=== PATIENT | male | born 1995 | race Caucasian/White ===

== ENCOUNTER 2024-06-23 11:28 | Outpatient (REF) | payer OTHER, SELFPAY | END 2024-06-23 11:29 | disposition home or self-care (01) | LOC: CF 11:28 | DX: Z13.89 Encounter for screening for other disorder (principal) ==

== ENCOUNTER 2024-06-29 09:22 | Outpatient (AMB) | payer OTHER, SELFPAY ==
--- NOTE | 2024-06-29 09:46 | A.OFFVIS_ITS ---
Vital Signs 06/29/24 09:47 Height 6 ft 3 in Weight 200 lb BMI 25.0 Intake Visit Reasons: FC-Displ fracture of left great toe Intake Note: Olaf 28 yr old male presents today for a new patient visit for his W/C injury from 06/21/24 to his left big toe. States while working, a sledgehammer fell on his toe. Seen the following day at urgent care where xrays were taken and placed in a post op shoe. He is currently having numbness and limited ROM. States his pain is a 5/10 in the day and worsen at night time. He has been out of since day of injury. Allergies No Known Allergies Allergy (Verified 06/29/24 09:47) Medication List - Last Reconciled 06/29/24 by Roya Jackson PA-C aspirin 325 mg PO DAILY HPI HPI FC-Displ fracture of left great toe: Details: 28-year-old gentleman presents to the office today for an injury he sustained to his left great toe on 06/21. This is a work related injury. He states that he was working when a sledgehammer was dropped on his toe. Was later seen at the urgent care where an x-ray was obtained and he was given a postop shoe. He was referred to our office for ortho eval. [facility] Social History (Updated 06/29/24 @ 09:48 by VIRGINIA Kim) Current occupational status: employed Current occupation: mark and house renovation/ rt hand Review of Systems Const All systems reviewed & are unremarkable except as noted in HPI and below Physical Exam Vital Signs: BMI result Body Mass Index 25.0 Const General: cooperative and no acute distress Orientation/consciousness: patient oriented x3 Resp Effort & Inspection: normal respiratory effort and able to speak in complete sentences Cardio Peripheral pulses: Peripheral pulses 2+ throughout Neuro General: patient oriented x3 Extrem Other: Left foot normal to inspection. He does have a subungual hematoma to the left great toe with tenderness and some decreased sensation. Office Procedures AMB Fracture Care Fracture Billing Code: Fracture Billing Code Results Reviewed Results Reviewed: X-rays of the left foot obtained from an outside source show fracture through the distal end of the great toe. Assessment & Plan Assessment & Plan (1) Fracture of left great toe: Code(s): S92.402A - Displaced unspecified fracture of left great toe, initial encounter for closed fracture Category: Medical Plan: Patient was placed in a short boot weightbearing as tolerated. I did educate him this could take 6-8 weeks for good callus formation. I would like to see him back in 4 weeks for re-evaluation, sooner if needed he will remain out of work until follow-up visit. Coding Level of Care Code New Pt Level 3 (94990) Complex EM visit Add On G2211 Diagnoses Fracture of left great toe S92.402A CPT Codes Fracture Care - Fracture Billing Code: Fracture Billing Code ([id number])
[2024-06-29 09:47] VITALS: BMI 25.0
== END 2024-06-29 10:08 | disposition home or self-care (01) ==
DX: S92.402A Displaced unspecified fracture of left great toe, initial encounter for closed fracture (principal)
CPT/HCPCS: 99203; G2211

== ENCOUNTER → 2024-06-29 09:22 | Outpatient (BNVA) | payer OTHER, SELFPAY | DX: S92.422A Displaced fracture of distal phalanx of left great toe, initial encounter for closed fracture (principal) | CPT/HCPCS: 28490; 99202 ==

== ENCOUNTER 2024-07-27 08:03 | Outpatient (REF) | payer OTHER, SELFPAY ==
--- NOTE | ~2024-07-27 | XR_ITS ---
EXAMINATION: XR FOOT 3 OR MORE VIEWS LEFT HISTORY: M79.672 - Pain in left foot COMPARISON: Comparison is made with a prior outside examination dated 06/22/2024. FINDINGS: Three views of the left foot are submitted. Osseous mineralization is normal. Again seen is a transverse fracture through the distal phalanx of the great toe. The fracture line is slightly blurred, consistent with healing. The joint spaces are preserved. The soft tissues are unremarkable. XR/XR foot LT min 3V IMPRESSION: Healing transverse fracture of the distal phalanx of the great toe. Electronically signed by: Miquel Lantigua MD 07/27/2024 10:08 AM [facility]
== END 2024-07-27 08:04 | disposition home or self-care (01) ==
LOC: HO.HOSX 08:03
PROVIDERS: Visit Provider Physician Assistant
DX: M79.672 Pain in left foot (principal); S92.402D Displaced unspecified fracture of left great toe, subsequent encounter for fracture with routine healing
CPT/HCPCS: 73630; 99212

== ENCOUNTER 2024-07-27 09:04 | Outpatient (AMB) | payer OTHER, SELFPAY ==
[2024-07-27 09:07] VITALS: BMI 25.0
--- NOTE | 2024-07-27 09:07 | MHC.OFFVIS ---
Vital Signs 07/27/24 09:07 Height 6 ft 3 in Weight 200 lb BMI 25.0 Intake Visit Reasons: OV-left great toe fracture 06/21/24 with x-ray Intake Note: Olaf is a 28 year old male who presents today for a follow up of his left great toe fracture 06/21/24. This is a work related injury, he dropped a sledgehammer on his toe. At his last visit he was placed in a short walking boot and instructed to WBAT. Patient rpeorts that he is having continued pain when walking. He has transitioned to wearing a hicking boot while he was ice fishing, and he feels like he has to walk on the outside of the foot. He has pain that is radiating to the 2nd and 3rd digit of the foot. He feels occasional pins and needles of the great toe. Allergies No Known Allergies Allergy (Verified 07/27/24 09:08) Medication List - Last Reconciled 07/27/24 by Roya Jackson PA-C No Known Home Meds HPI HPI OV-left great toe fracture 06/21/24 with x-ray: Details: 28-year-old gentleman presents to the office today for an injury he sustained to his left great toe on 06/21/2024 while at work. He states there is some improvement but does have some irritation in the toe itself, like something is rubbing. The pain has improved. He has been out of work since the injury. He states when he is not in the boot he has to work on the outside of the foot. He states if he walks with shoes that are more flexible he has discomfort with flexion of the toe. [facility] Social History Current occupational status: employed Current occupation: mark and house renovation/ rt hand Review of Systems Const All systems reviewed & are unremarkable except as noted in HPI and below Physical Exam Vital Signs: BMI result Body Mass Index 25.0 Const General: cooperative and no acute distress Orientation/consciousness: patient oriented x3 Resp Effort & Inspection: normal respiratory effort and able to speak in complete sentences Cardio Peripheral pulses: Peripheral pulses 2+ throughout Neuro General: patient oriented x3 Extrem Other: Left foot normal to inspection. He does have a subungual hematoma to the left great toe without significant tenderness. He does have weakness with EHL activation. Results Reviewed Results Reviewed: X-rays of the left foot obtained in the office and reviewed by me today show interval healing through the fracture of the great toe. Assessment & Plan Assessment & Plan (1) Fracture of left great toe: Code(s): S92.402A - Displaced unspecified fracture of left great toe, initial encounter for closed fracture Category: Medical Qualifiers: Encounter type: subsequent encounter Fracture type: closed Fracture alignment: nondisplaced Fracture healing: with routine healing Plan: At this time he can transition to regular street shoes that have a stiff sole or his work boots that are steel toe. He will return to work on 08/03/2024 light duty with no climbing. This should include ground work only. He will begin a course of physical therapy to work on gait training and strengthening. I would like to see him back in 6 weeks with x-rays, to anticipate full duty return to work, sooner if needed. Orders: Orders PT Evaluation and Treatment Today S92.402A - Displaced unspecified fracture of left great toe, initial encounter for closed fracture XR foot LT min 3V Today M79.672 - Pain in left foot Coding Level of Care Code Global (44040) Diagnoses Fracture of left great toe S92.402A Encounter type: subsequent encounter Fracture type: closed Fracture alignment: nondisplaced Fracture healing: with routine healing
== END 2024-07-27 09:26 | disposition home or self-care (01) ==
PROVIDERS: Visit Provider Physician Assistant
DX: S92.402A Displaced unspecified fracture of left great toe, initial encounter for closed fracture (principal)
CPT/HCPCS: 99213

== ENCOUNTER → 2024-07-27 09:06 | Outpatient (BNV) | payer OTHER, SELFPAY | PROVIDERS: Visit Provider Radiology Diagnostic Radiology | DX: M79.672 Pain in left foot (principal) | CPT/HCPCS: 73630 ==

== ENCOUNTER 2024-09-07 08:31 | Outpatient (REF) | payer OTHER, SELFPAY ==
--- NOTE | ~2024-09-07 | XR_ITS ---
EXAMINATION: XR FOOT 3 OR MORE VIEWS LEFT HISTORY: M79.672 - Pain in left foot COMPARISON: Comparison is made with the prior examination dated 07/27/2024. FINDINGS: Three views of the left foot are submitted. Osseous mineralization is normal. Again seen is a transverse fracture of the distal phalanx of the great toe. There is blurring of the fracture margins and a small amount of callus formation, consistent with healing. The joint spaces are preserved. The soft tissues are unremarkable. XR/XR foot LT min 3V IMPRESSION: Healing transverse fracture of the distal phalanx of the great toe. Electronically signed by: Miquel Lantigua MD 09/08/2024 01:41 PM EDT
== END 2024-09-07 08:32 | disposition home or self-care (01) ==
LOC: HO.HOSX 08:31
PROVIDERS: Visit Provider Physician Assistant
DX: M79.672 Pain in left foot (principal); S92.402A Displaced unspecified fracture of left great toe, initial encounter for closed fracture
CPT/HCPCS: 73630; 99212

== ENCOUNTER 2024-09-07 11:15 | Outpatient (AMB) | payer OTHER, SELFPAY ==
--- NOTE | 2024-09-07 11:29 | A.OFFVIS_ITS ---
Intake Visit Reasons: OV-left great toe fracture 06/21/24 with x-ray Intake Note: Olaf is a 28 year old male who presents today for a WC follow up of his left great toe fracture, DOI 06/21/24. At patients last visit he was to transition into a regular street shoe that has a stiff sole or steel toe work boot. He was referred to PT to work on gait training and strengthening. Patient reports he has been attending PT which has been helping, stating he has 5 visits left. He continues to do at home exercises as instructed. He has an ongoing discomfort at the bottom of his foot at the base of his toes. States with walking the lateral aspect of ankle gets tired. Allergies No Known Allergies Allergy (Verified 09/07/24 11:29) Medication List - Last Reconciled 09/07/24 by Roya Jackson PA-C No Known Home Meds HPI HPI OV-left great toe fracture 06/21/24 with x-ray: Details: 28-year-old gentleman returns to the office today for a left great toe fracture workman's comp injury 06/21/2024. He continues to work with physical therapy to work on gait mechanics and strengthening exercises. He states he has been trying to increase activities with minimal discomfort. [facility] Social History Current occupational status: employed Current occupation: mark and house renovation/ rt hand Review of Systems Const All systems reviewed & are unremarkable except as noted in HPI and below Physical Exam Const General: cooperative and no acute distress Orientation/consciousness: patient oriented x3 Resp Effort & Inspection: normal respiratory effort and able to speak in complete sentences Cardio Peripheral pulses: Peripheral pulses 2+ throughout Neuro General: patient oriented x3 Extrem Other: Left foot normal to inspection. He does have a subungual hematoma to the left great toe without significant tenderness. He does have weakness with EHL activation. Results Reviewed Results Reviewed: X-rays of the left foot obtained in the office and reviewed by me today show interval healing through the fracture of the great toe. Assessment & Plan Assessment & Plan (1) Fracture of left great toe: Code(s): S92.402A - Displaced unspecified fracture of left great toe, initial encounter for closed fracture Category: Medical Qualifiers: Encounter type: subsequent encounter Fracture type: closed Fracture alignment: nondisplaced Fracture healing: with routine healing Plan: At this time he will return to work on 09/08/2024 without restrictions. He will continue to increase activities as tolerated and complete his physical therapy. If there is any concerns going forward he will contact our office otherwise follow up as needed. Orders: Orders XR foot LT min 3V Today M79.672 - Pain in left foot Coding Level of Care Code Global (09910) Diagnoses Fracture of left great toe S92.402A Encounter type: subsequent encounter Fracture type: closed Fracture alignment: nondisplaced Fracture healing: with routine healing
== END 2024-09-07 11:40 | disposition home or self-care (01) ==
LOC: HO.HOS 11:16
PROVIDERS: Visit Provider Physician Assistant
DX: S92.402A Displaced unspecified fracture of left great toe, initial encounter for closed fracture (principal)
CPT/HCPCS: 99213

== ENCOUNTER → 2024-09-07 11:18 | Outpatient (BNV) | payer OTHER, SELFPAY | PROVIDERS: Visit Provider Radiology Diagnostic Radiology | DX: M79.672 Pain in left foot (principal) | CPT/HCPCS: 73630 ==

== ENCOUNTER 2024-10-06 11:03 | Outpatient (RCR) | payer OTHER, SELFPAY ==
--- NOTE | 2024-08-06 11:00 | MHC.PT.EP ---
[facility] [employer] Office [place] Office [place] Office [address] [phone] F: [phone] F: [phone] F: [phone] F: [phone] Physical Therapy Plan of Care Date of Evaluation: 08/06/24 Date of Surgery: Diagnosis: displaced unspecified fx of L great toe Fx of L great toe, gait training, ROM, strength Assessment: 28 y/o male referred to PT with L great toe fracture that was sustained at work 06/21/24 when he dropped a sledgehammer on it. 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 He has been OOW since injury but was just released to light duty 08/03/24 (however no work at this time). He was in short walking boot WBAT for 5-6 weeks and is able to transition to street shoes. At this time, reports pain with walking, stairs, job duties in construction. Examination shows decreased L ankle/ great toe ROM and strength, tenderness along great toe, decreased gastroc/soleus length, and impaired gait pattern. Recommend PT 2x/week for 4 weeks however 1x/week is better for pt d/t transportation issues and he will perform I HEP) to address impairments, implement HEP, and optimize functional mobility. Frequency and Duration: The patient will be seen 1x/week for 5 weeks Short Term Goals: 3 weeks I with HEP Pt will be in street shoes 100% of the time with pain < 3/10 Fpc Goals: 5 weeks I with HEP and self management of sx Pt will demonstrate normal ankle ROM to faciliate gait Pt will be able to ascend/ descend stairs in street shoes step through pattern with pain < 3/10 Treatment Plan: Modalities to reduce pain, spasms and effusion. Manual therapy to restore motion and function. Therapeutic exercise to improve strength and flexibility. Neuromuscular re-education for posture and balance. Therapeutic activities to return to functional activities of daily living. Electronically signed by: Li Brumfield PT Please sign and return to therapist. Thank you for your referral.
--- NOTE | 2024-10-12 07:14 | MHC.PT.DC ---
[facility] [place] Office [place] Office [place] Office [address] [phone] F: [phone] F: [phone] F: [phone] F: [phone] Physical Therapy Discharge Report Diagnosis: displaced unspecified fx of L great toe Fx of L great toe, gait training, ROM, strength Date of Surgery: Date of Evaluation: 08/06/24 Date of Discharge: 10/12/24 Treatments to Date: 8 Cancellations to Date: 0 No Shows to Date: 0 Discharge Status: Achieved Goals Improved Function Independent with HEP Discharge Summary: Pt has been an active participant in PT and has met all goals. He demonstrates improved ankle ROM, improved strength, less pain and improved functional mobility. D/c to I HEP. Pt in agreement Electronically signed by: Li Brumfield PT Please sign and return to therapist. Thank you for your referral.
== END 2024-10-12 07:15 | disposition home or self-care (01) ==
LOC: HO.PT 11:03
PROVIDERS: Visit Provider Physician Assistant
DX: S92.402D Displaced unspecified fracture of left great toe, subsequent encounter for fracture with routine healing (principal)
CPT/HCPCS: 97110; 97140; 97161; 97530